=== PATIENT | female | born 1990 | race African-American/Black ===

== ENCOUNTER 2017-03-02 16:32 | Emergency (ER) | payer OTHER ==
--- NOTE | 2017-03-02 16:57 | PHYS DOC ---
General Chief Complaint: ANKLE PROBLEM Stated Complaint: LEFT LEG PAIN Time Seen by MD: 16:36 Source: patient Exam Limitations: no limitations Problems: History of Present Illness Initial Comments Patient is a 26-year-old female who comes in the ED complaining of left lower leg pain. Patient states that for the past few days she's had left lower leg pain which started at her ankle and is now radiating proximally up the lateral aspect of her calf. She does take control she is not a smoker, she did have a recent anterior left tibial contusion with significant left lower extremity swelling and she states that she spent several weeks convalescing on the sofa watching television. She also relays that she's been unemployed for the past year and has just this week started a new job which requires her to be on her feet a great deal. She's had ankle sprains in the past but denies recent trauma , and denies other weakness numbness tingling or radiating symptoms. She says she has muscle relaxants and pain medications at home for a previous back injury but has not taken them, she has come for evaluation to determine if she has a blood clot. No headache chest pain or difficulty breathing focal neurologic symptoms vision changes. Pain is described as sharp and stabbing the moderate to severe with movement and nearly absent at rest. Onset: other (past days she has recently history of left lower leg contusion with swelling she was off her feet for about a month watching TV she had worked in a year she's been very sedentary) Pain/Injury Location: left leg, left ankle Method of Injury: unknown Modifying Factors: worse with jarring, worse with movement, improves with rest Past Medical History Medical History: other (anxiety) Surgical History: noncontributory (normal) Social History Smoker: non-smoker Alcohol: none Drugs: none Review of Systems Constitutional: denies chills, denies fever (disposition d-dimer), denies malaise Respiratory: denies cough, denies shortness of breath, denies wheezing Cardiovascular: denies chest pain, denies palpitations, denies syncope Gastrointestinal: denies abdominal pain, denies nausea, denies vomiting Musculoskeletal: see HPI Skin: denies lesions, denies lumps, denies rash Psychiatric/Neurological: denies headache, denies numbness, denies paresthesia , denies weakness Physical Exam General Appearance: no apparent distress (patient's CBC and basic), obese HEENT: normal ENT inspection Neck: full range of motion, supple Cardiovascular/Respiratory: normal peripheral pulses, no respiratory distress Back: no CVA tenderness, no vertebral tenderness Legs: left leg other (there is 2+ pitting left lower extremity edema no erythema or tenderness no palpable subcutaneous masses or nodules, no deformity. ) Neurologic/Tendon: normal sensation, normal motor functions, normal tendon functions, responds to pain, no evidence tendon injury Psychiatric: alert, oriented x 3 Skin: normal color, warm/dry Orders, Labs, Meds PATIENT: PARADISE FREY ACCOUNT: [id number] : 1990 LOCATION: ER AGE: 26 SEX: F EXAM STATUS: REG ER ORD. PHYSICIAN: BEATRIZ VIZCAINO DO REASON: left leg pain/swelling PROCEDURE: VENOUS LOWER EXTREMITY LEFT Left lower extremity venous duplex Doppler ultrasound HISTORY: Left leg pain and swelling TECHNIQUE: Grayscale and duplex Doppler sonography were utilized. FINDINGS: No evidence of deep venous thrombosis by subramanian scale sonography with compressibility, respiratory variability, augmentation of blood flow and patent color Doppler flow of the left common femoral vein, greater saphenous vein in the proximal thigh, profunda femoral vein, superficial femoral vein and popliteal vein. Patent color Doppler blood flow with augmentation of blood flow of the left posterior tibial and peroneal veins within the calf. IMPRESSION: Negative left leg for deep venous thrombosis. Electronically signed by: Nicholas Resendiz MD (03/02/2017 5:42 PM) [facility] DICTATED AND SIGNED BY: NICHOLAS RESENDIZ MD DATE: 03/02/17 174 CC: WADE SOUZA BRAD K DO ~ Labs reassuring Departure Time of Disposition: 17:48 Disposition: 01 HOME, SELF-CARE Diagnosis: left lower leg strain Condition: GOOD Patient Instructions: Muscle Strain, [id number] Additional Instructions: Activity as tolerated. Heating pad to affected area 20 minutes 4-6 times daily followed by gentle stretching. [id number] Tylenol and/or ibuprofen as needed for discomfort. Follow-up with your doctor next week for recheck if symptoms persist. Return to the ED with new or changing symptoms. BEATRIZ VIZCAINO DO Mar 02, 2017 16:57
[2017-03-02 17:25] LABS: CALCIUM 9.6 mg/dL (8.5-10.1); CREATININE 1.4 mg/dL (0.6-1.0); GFR 55.4
[2017-03-02 17:26] LABS: BASO # 0.1 x10^3/uL (0.0-0.2); BASO % 1 % (0-3); EOS # 0.3 x10^3/uL (0.0-0.7); EOS % 4 % (0-3); HEMATOCRIT 39.6 % (36.0-47.0); HEMOGLOBIN 13.4 g/dL (12.0-15.5); LYMPH # 2.1 x10^3/uL (1.0-4.8); LYMPH % 29 % (24-48); MEAN CORPUSCULAR HEMOGLOBIN 27 pg (25-35); MEAN CORPUSCULAR HGB CONC 34 g/dL (31-37); MEAN CORPUSCULAR VOLUME 80 fL (79-100); MONO # 0.4 x10^3/uL (0.0-1.1); MONO % 6 % (0-9); NEUT # 4.4 x10^3uL (1.8-7.7); NEUT % 61 % (31-73); PLATELET COUNT 260 x10^3/uL (140-400); RED BLOOD COUNT 4.93 x10^6/uL (3.50-5.40); RED CELL DISTRIBUTION WIDTH 13.9 % (11.5-14.5); WHITE BLOOD COUNT 7.2 x10^3/uL (4.0-11.0)
--- NOTE | 2017-03-02 17:45 | RAD ---
Left lower extremity venous duplex Doppler ultrasound HISTORY: Left leg pain and swelling TECHNIQUE: Grayscale and duplex Doppler sonography were utilized. FINDINGS: No evidence of deep venous thrombosis by subramanian scale sonography with compressibility, respiratory variability, augmentation of blood flow and patent color Doppler flow of the left common femoral vein, greater saphenous vein in the proximal thigh, profunda femoral vein, superficial femoral vein and popliteal vein. Patent color Doppler blood flow with augmentation of blood flow of the left posterior tibial and peroneal veins within the calf. IMPRESSION: Negative left leg for deep venous thrombosis. Electronically signed by: Stanley Resendiz MD (03/02/2017 5:42 PM) [facility]
[2017-03-02 17:55] VITALS: BP 135/78
== END 2017-03-02 17:58 | disposition home or self-care (01) ==
LOC: ER 16:32
DX: S86.912A Strain of unspecified muscle(s) and tendon(s) at lower leg level, left leg, initial encounter (principal); X58.XXXA Exposure to other specified factors, initial encounter; Y93.89 Activity, other specified; Y99.8 Other external cause status; Y92.89 Other specified places as the place of occurrence of the external cause
CPT/HCPCS: 36415; 80048; 85027; 85379; 93971; 99285-25

== ENCOUNTER 2017-05-30 19:29 | Emergency (ER) | payer OTHER ==
[2017-05-30 19:43] VITALS: BP 126/51
[2017-05-30] MEDS ORDERED: ONDANSETRON PF 4 MG/2 ML VIAL. IV ONE (20:15)
[2017-05-30 20:29] LABS: BASO # 0.1 x10^3/uL (0.0-0.2); BASO % 1 % (0-3); EOS # 0.3 x10^3/uL (0.0-0.7); EOS % 3 % (0-3); HEMATOCRIT 39.1 % (36.0-47.0); HEMOGLOBIN 13.3 g/dL (12.0-15.5); LYMPH % 21 % (24-48); MEAN CORPUSCULAR HEMOGLOBIN 27 pg (25-35); MEAN CORPUSCULAR HGB CONC 34 g/dL (31-37); MEAN CORPUSCULAR VOLUME 79 fL (79-100); MONO # 0.6 x10^3/uL (0.0-1.1); MONO % 6 % (0-9); NEUT # 6.7 x10^3uL (1.8-7.7); NEUT % 69 % (31-73); PLATELET COUNT 210 x10^3/uL (140-400); RED BLOOD COUNT 4.94 x10^6/uL (3.50-5.40); RED CELL DISTRIBUTION WIDTH 14.3 % (11.5-14.5); WHITE BLOOD COUNT 9.6 x10^3/uL (4.0-11.0)
[2017-05-30 20:39] LABS: ALBUMIN 3.6 g/dL (3.4-5.0); ALBUMIN/GLOBULIN RATIO 0.9 (1.0-1.7); CALCIUM 10.4 mg/dL (8.5-10.1); GFR 81.1; TOTAL BILIRUBIN 0.5 mg/dL (0.2-1.0); TOTAL PROTEIN 7.5 g/dL (6.4-8.2)
--- NOTE | 2017-05-30 21:28 | RAD ---
Limited abdomen ultrasound study of the right upper quadrant HISTORY: 2 episodes of severe epigastric pain with nausea today. FINDINGS: The pancreas is partially obscured due to overlying bowel gas. What is visualized is homogeneous without focal enlargement. The liver is homogeneous and measures 17.7 cm in length. The length of the right kidney is 10.1 cm. No hydronephrosis or renal mass or perinephric fluid collection is seen on this side. Multiple gallstones are seen within the gallbladder. No gallbladder wall thickening or pericholecystic free fluid is evident. The extra hepatic bile duct measures 4.6 mm in caliber which is normal. IMPRESSION: Cholelithiasis. Electronically signed by: Shaquille Jerome MD (05/30/2017 9:24 PM) [facility]
[2017-05-30] MEDS ORDERED: ONDA8TAB12 PO (22:18)
[2017-05-30] MEDS ORDERED: HYDR-971 PO (22:18)
--- NOTE | 2017-05-30 22:18 | PHYS DOC ---
Past History Past Medical History: Anxiety Past Surgical History: No Surgical History Alcohol Use: None Drug Use: None Adult General Chief Complaint Chief Complaint: ABDOMINAL PAIN HPI HPI Patient is a 27-year-old female who presents to the ED with the complaint of abdominal pain. She first had this pain 2 days ago, Saturday. It awoke her at 340 in the morning. She saw her doctor on Saturday. The pain was gone but she was still nauseated. They thought it was probably a stomach bug. The patient was fine all day today. About 6:30 the pain began. It lasted about 30 or 45 minutes. It feels like a twisting and a pressure. She sort of feels like she needs to have a bowel movement but then she doesn't. She did have a normal bowel movement today. She has nausea with the pain. This evening, it happened after she ate one [place] [employer] moeller. Patient does take daily Prilosec for acid reflux. She doesn't feel like she's had any acid reflux. She's been taking it daily as prescribed. Patient works at a daycare. She is in good general health. Review of Systems Review of Systems Constitutional: Denies fever or chills [] HENT: Denies nasal congestion or sore throat [] Respiratory: Denies cough or shortness of breath [] Cardiovascular: Denies chest pain GI: As in history of present illness : Denies UTI symptoms Musculoskeletal: Denies back pain or joint pain [] Integument: Denies rash or skin lesions [] Neurologic: Denies headache, focal weakness or sensory changes [] Current Medications Current Medications Current Medications Medications (Trade) Dose Ordered Sig/[facility] Start Time Stop Time Status Last Admin Dose Admin Ondansetron HCl (Zofran) 4 mg 1X ONCE 05/30/17 20:15 05/30/17 20:16 DC 05/30/17 20:15 4 MG Allergies Allergies Allergies Coded Allergies Type Severity Reaction Last Updated Verified No Known Drug Allergies 05/30/17 No Physical Exam Physical Exam Constitutional: Well developed, well nourished, no acute distress, non-toxic appearance. Alert, mentating normally, warm and dry. HENT: Normocephalic, atraumatic, bilateral external ears normal, nose normal. [ ] Eyes: conjunctiva normal, no discharge. [] Neck: Normal range of motion, no stridor. [] Cardiovascular:Heart rate regular rhythm, no murmur [] Lungs & Thorax: Bilateral breath sounds clear to auscultation [] Abdomen: Bowel sounds normal, soft, nondistended, no masses, no pulsatile masses. Tenderness to palpation in the epigastrium and right upper quadrant. Hightower's +/-, gallbladder, liver not palpable Skin: Warm, dry, no erythema, no rash. [] Extremities: No tenderness, no cyanosis, no clubbing, ROM intact, no edema. [] Neurologic: Alert and oriented X 3, normal motor function, no focal deficits noted. [] Current Patient Data Vital Signs Vital Signs Date Time Temp Pulse Resp B/P (MAP) Pulse Ox O2 Delivery O2 Flow Rate FiO2 05/30/17 19:43 98.3 81 18 100 Room Air Lab Results Laboratory Tests Test 05/30/17 20:10 05/30/17 20:26 White Blood Count 9.6 x10^3/uL (4.0-11.0) Red Blood Count 4.94 x10^6/uL (3.50-5.40) Hemoglobin 13.3 g/dL (12.0-15.5) Hematocrit 39.1 % (36.0-47.0) Mean Corpuscular Volume 79 fL (79-100) Mean Corpuscular Hemoglobin 27 pg (25-35) Mean Corpuscular Hemoglobin Concent 34 g/dL (31-37) Red Cell Distribution Width 14.3 % (11.5-14.5) Platelet Count 210 x10^3/uL (140-400) Neutrophils (%) (Auto) 69 % (31-73) Lymphocytes (%) (Auto) 21 % (24-48) L Monocytes (%) (Auto) 6 % (0-9) Eosinophils (%) (Auto) 3 % (0-3) Basophils (%) (Auto) 1 % (0-3) Neutrophils # (Auto) 6.7 x10^3uL (1.8-7.7) Lymphocytes # (Auto) 2.0 x10^3/uL (1.0-4.8) Monocytes # (Auto) 0.6 x10^3/uL (0.0-1.1) Eosinophils # (Auto) 0.3 x10^3/uL (0.0-0.7) Basophils # (Auto) 0.1 x10^3/uL (0.0-0.2) Sodium Level 137 mmol/L (136-145) Potassium Level 4.0 mmol/L (3.5-5.1) Chloride Level 104 mmol/L (98-107) Carbon Dioxide Level 27 mmol/L (21-32) Anion Gap 6 (6-14) Blood Urea Nitrogen 12 mg/dL (7-20) Creatinine 1.0 mg/dL (0.6-1.0) Estimated GFR (Cockcroft-Gault) 81.1 BUN/Creatinine Ratio 12 (6-20) Glucose Level 104 mg/dL (70-99) H Calcium Level 10.4 mg/dL (8.5-10.1) H Total Bilirubin 0.5 mg/dL (0.2-1.0) Aspartate Amino Transferase (AST) 62 U/L (15-37) H Alanine Aminotransferase (ALT) 66 U/L (14-59) H Alkaline Phosphatase 132 U/L (46-116) H Total Protein 7.5 g/dL (6.4-8.2) Albumin 3.6 g/dL (3.4-5.0) Albumin/Globulin Ratio 0.9 (1.0-1.7) L Lipase 215 U/L (73-393) POC Urine HCG, Qualitative hcg negative (Negative) EKG EKG [] Radiology/Procedures Radiology/Procedures Right upper quadrant ultrasound read by the radiologist. Multiple gallstones but no evidence of cholecystitis or duct abnormality.[] Course & Med Decision Making Course & Med Decision Making Pertinent Labs and Imaging studies reviewed. (See chart for details) 27-year-old female presents with an episode of acute pain in the epigastrium that has nearly resolved on arrival to ED, this is her second episode in 3 days. The patient states the pain, when it comes, it is severe and she is very worried about what it is. Labs without significant acute findings but the patient's gallbladder ultrasound is positive for gallstones. Discussed the diagnosis of gallstones/ biliary colic with the patient and her . See instructions for plan. [] Dragon Disclaimer Dragon Disclaimer This chart was dictated in whole or in part using Voice Recognition software in a busy, high-work load, and often noisy Emergency Department environment. It may contain unintended and wholly unrecognized errors or omissions. Departure Departure: Impression: Primary Impression: Cholelithiasis Additional Impression: Biliary colic Disposition: 01 HOME, SELF-CARE Condition: IMPROVED Referrals: WADE SOUZA (PCP) Patient Instructions: Cholelithiasis, [id number] Additional Instructions: Call your primary care doctor's office tomorrow to let them know your diagnosis and asked for them to help arranging surgical consultation. As we discussed, avoid any fats whatsoever, including good fats, because that is what causes your gallbladder to contract. If you do have pain that won't go away within about an hour, if you have jaundice, or fever 100.4 higher, return to emergency. Scripts Hydrocodone Bit/Acetaminophen (NORCO 5-325 TABLET) 1 Each Tablet 1 TAB PO PRN Q6HRS Y for PAIN, #10 TAB 0 Refills Prov: KORY ODONNELL MD 05/30/17 Ondansetron (ZOFRAN ODT) 8 Mg Tab.rapdis 1 TAB PO Q8HRS for NAUSEA, #20 TAB Prov: KORY ODONNELL MD 05/30/17 Problem Qualifiers KORY ODONNELL MD May 30, 2017 22:18
== END 2017-05-30 22:27 | disposition home or self-care (01) ==
LOC: ER 19:32
DX: K80.70 Calculus of gallbladder and bile duct without cholecystitis without obstruction (principal); F41.9 Anxiety disorder, unspecified
CPT/HCPCS: 36415; 76705; 80053; 81025; 83690; 85025; 96374; 99285; J2405

== ENCOUNTER 2017-06-26 11:10 | Emergency (ER) | payer OTHER ==
[~2017-06-26 11:10] MED LIST: HYDR-971 PO; ONDA8TAB12 PO
--- NOTE | 2017-06-26 11:13 | PHYS DOC ---
Past History Past Medical History: Anxiety Past Surgical History: No Surgical History Alcohol Use: None Drug Use: None Adult General Chief Complaint Chief Complaint: abdominal pain [facility] HPI Patient is a 27 year old female who presents with abdominal pain. She had her gallbladder removed May 15 secondary to cholelithiasis. She states she's been doing fine since then however this morning she started having epigastric pain as a twisting sensation is located in her epigastric area. She denies any nausea or vomiting. She states the exact same pain she had several weeks ago and let her to have her gallbladder removed. She is not followed up with her surgeon as of yet. She states she's been having bowel movements are slightly different than her normal but she thinks this is likely the adjustment from her gallbladder surgery. She denies any fevers chills and stated before 940 this morning she was feeling fine. She has a past medical history of migraines, insomnia, depression. Her only other surgeries are dental surgeries. She denies . She denies any vaginal bleeding or discharge. She states nothing makes the pain better or worse. Review of Systems Review of Systems Constitutional: Denies fever or chills [] Eyes: Denies change in visual acuity, redness, or eye pain [] HENT: Denies nasal congestion or sore throat [] Respiratory: Denies cough or shortness of breath [] Cardiovascular: No additional information not addressed in HPI [] GI: Positive for abdominal pain,,Denies nausea, vomiting, bloody stools or diarrhea [] : Denies dysuria or hematuria [] Musculoskeletal: Denies back pain or joint pain [] Integument: Denies rash or skin lesions [] Neurologic: Denies headache, focal weakness or sensory changes [] Endocrine: Denies polyuria or polydipsia [] Allergies Allergies Allergies Coded Allergies Type Severity Reaction Last Updated Verified No Known Drug Allergies 05/30/17 No Physical Exam Physical Exam Constitutional: Well developed, well nourished, no acute distress, non-toxic appearance. [] HENT: Normocephalic, atraumatic, bilateral external ears normal, oropharynx moist, no oral exudates, nose normal. [] Eyes: PERRLA, EOMI, conjunctiva normal, no discharge. [] Neck: Normal range of motion, no tenderness, supple, no stridor. [] Cardiovascular:Heart rate regular rhythm, no murmur [] Lungs & Thorax: Bilateral breath sounds clear to auscultation [] Abdomen: Bowel sounds normal, soft, no tenderness, no masses, no pulsatile masses. [] Skin: Warm, dry, no erythema, no rash. [] Back: No tenderness, no CVA tenderness. [] Extremities: No tenderness, no cyanosis, no clubbing, ROM intact, no edema. [] Neurologic: Alert and oriented X 3, normal motor function, normal sensory function, no focal deficits noted. [] Psychologic: Affect normal, judgement normal, mood normal. [] EKG EKG [] Radiology/Procedures Radiology/Procedures [address] [address] IMAGING REPORT Signed PATIENT: PARADISE FREY ACCOUNT: [id number] : 1990 LOCATION: ER AGE: 27 SEX: F EXAM STATUS: REG ER ORD. PHYSICIAN: BERENICE ORELLANA MD REASON: abd pain PROCEDURE: CT ABD PELV W/ IV CONTRST ONLY CT of the abdomen and pelvis with contrast, 06/26/2017: History: Abdominal pain Multidetector CT imaging was performed following an IV bolus injection of iodinated contrast material. No oral contrast material was administered for this exam. No hepatic abnormality is identified. There is a tiny amount of fluid in the gallbladder fossa in this patient who has recently undergone a cholecystectomy. No large or encapsulated fluid collection is seen to suggest abscess or biloma. No bile duct dilatation is evident. The pancreas is unremarkable. The spleen is within normal limits in size. No renal abnormality is detected. The aorta is unremarkable. There are several small mesenteric lymph nodes seen without evidence of pathologic enlargement. No pelvic adenopathy is detected. The uterus is unremarkable. There is a trace amount of free fluid in the deep pelvis. The bowel loops are not dilated. The appendix is not visualized. No dilated appendix or pericecal inflammatory process is seen. No free air is evident in the abdomen or pelvis. There is mild degenerative changes at the L5-S1 disc level. IMPRESSION: 1. Minimal fluid in the gallbladder fossa compatible with the history of a recent cholecystectomy. 2. Small amount of free fluid in the pelvis. This amount of fluid can be on a physiologic basis. 3. The abdomen and pelvis are otherwise unremarkable. PQRS Compliance Statement: One or more of the following individualized dose reduction techniques were utilized for this examination: 1. Automated exposure control 2. Adjustment of the mA and/or kV according to patient size 3. Use of iterative reconstruction technique DICTATED AND SIGNED BY: PAT ANDINO MD DATE: 06/26/17 1221 CC: WADE SOUZA; BERENICE ORELLANA MD ~ [place] [address] IMAGING REPORT Signed PATIENT: PARADISE FREY ACCOUNT: [id number] : 1990 LOCATION: ER AGE: 27 SEX: F EXAM STATUS: REG ER ORD. PHYSICIAN: BERENICE ORELLANA MD REASON: ruq pain PROCEDURE: ABDOMEN LTD Right upper quadrant abdominal ultrasound, 06/26/2017: History: Pain The gallbladder is surgically absent. The common hepatic duct measures 4 mm. There is no evidence of a hepatic mass or intrahepatic bile duct dilatation. The pancreas was obscured by overlying bowel. The visualized portions of the right kidney are unremarkable. No free fluid is identified in the abdomen. IMPRESSION: 1. Status post cholecystectomy. 2. No acute abnormality is detected. DICTATED AND SIGNED BY: PAT ANDINO MD DATE: 06/26/17 1231 CC: WADE SOUZA; BERENICE ORELLANA MD ~ Impressions: Abdominal pain Course & Med Decision Making Course & Med Decision Making Pertinent Labs and Imaging studies reviewed. (See chart for details) Her pain is subsiding with a GI cocktail and morphine. CT scan and ultrasound of her abdomen did not show any acute abnormalities. Her labs also within normal limits. She's to follow-up with GI as an outpatient and her surgeon. Return precautions given. Her and her is agreeable Plan B discharged in stable condition this time. Dragon Disclaimer Dragon Disclaimer This chart was dictated in whole or in part using Voice Recognition software in a busy, high-work load, and often noisy Emergency Department environment. It may contain unintended and wholly unrecognized errors or omissions. Departure Departure: Impression: Primary Impression: Abdominal pain Disposition: HOME, SELF-CARE Condition: STABLE Referrals: WADE SOUZA (PCP) SHANELLE SAVAGE MD Patient Instructions: Abdominal Pain Additional Instructions: You were seen today for your epigastric abdominal pain. The CAT scan and ultrasound of your abdomen did not show any acute abnormalities. Your pain has resolved. Your labs are also within normal limits. You'll need to follow-up with Dr. Roberts within the next few days. Please call his office and schedule follow-up appointment. You can take Maalox or Tums to see if this will help your abdominal pain, if it flares up again. You'll need to follow-up with GI doctor. Please call their office schedule follow-up appointment. If your pain gets worse you have uncontrolled nausea vomiting, or other concerns please return back to emergency department. Problem Qualifiers Primary Impression: Abdominal pain Abdominal location: epigastric Qualified Codes: R10.13 - Epigastric pain BERENICE ORELLANA MD Jun 26, 2017 11:13
[2017-06-26] MEDS ORDERED: IV NORMAL SALINE 1,000ML 1,000 ML IV SCH (11:17)
[2017-06-26] MEDS ORDERED: ONDANSETRON PF 4 MG/2 ML VIAL. IV ONE (11:30)
[2017-06-26] MEDS ORDERED: MORPHINE SULFATE 2 MG/ML DISP.SYRIN. IV/SQ PRN (11:30)
[2017-06-26 11:35] LABS: BASO # 0.1 x10^3/uL (0.0-0.2); BASO % 1 % (0-3); EOS # 0.4 x10^3/uL (0.0-0.7); EOS % 5 % (0-3); HEMATOCRIT 41.3 % (36.0-47.0); LYMPH # 2.4 x10^3/uL (1.0-4.8); LYMPH % 29 % (24-48); MEAN CORPUSCULAR HEMOGLOBIN 27 pg (25-35); MEAN CORPUSCULAR HGB CONC 34 g/dL (31-37); MEAN CORPUSCULAR VOLUME 80 fL (79-100); MONO # 0.5 x10^3/uL (0.0-1.1); MONO % 6 % (0-9); NEUT # 4.9 x10^3uL (1.8-7.7); NEUT % 60 % (31-73); PLATELET COUNT 275 x10^3/uL (140-400); RED BLOOD COUNT 5.19 x10^6/uL (3.50-5.40); RED CELL DISTRIBUTION WIDTH 14.4 % (11.5-14.5); WHITE BLOOD COUNT 8.3 x10^3/uL (4.0-11.0)
[2017-06-26 11:47] LABS: ALBUMIN 3.8 g/dL (3.4-5.0); CALCIUM 10.6 mg/dL (8.5-10.1); CREATININE 1.1 mg/dL (0.6-1.0); DIRECT BILIRUBIN 0.1 mg/dL (0.0-0.2); GFR 72.6; POTASSIUM 4.1 mmol/L (3.5-5.1); TOTAL BILIRUBIN 0.3 mg/dL (0.2-1.0); TOTAL PROTEIN 7.9 g/dL (6.4-8.2)
[2017-06-26] MEDS ORDERED: LIDO:MAALOX 1:1 20 ML SINGLE DOSE ONE (11:47)
[2017-06-26] MEDS ORDERED: IOHEXOL 300 MG/ML 75 ML VIAL. ONE (11:55)
[2017-06-26] MEDS ORDERED: LIDO:MAALOX 1:1 20 ML SINGLE DOSE PO ONE (12:00)
[2017-06-26] MEDS ORDERED: IOHEXOL 300 MG/ML 75 ML VIAL. IV ONE (12:00)
--- NOTE | 2017-06-26 12:33 | RAD ---
CT of the abdomen and pelvis with contrast, 06/26/2017: History: Abdominal pain Multidetector CT imaging was performed following an IV bolus injection of iodinated contrast material. No oral contrast material was administered for this exam. No hepatic abnormality is identified. There is a tiny amount of fluid in the gallbladder fossa in this patient who has recently undergone a cholecystectomy. No large or encapsulated fluid collection is seen to suggest abscess or biloma. No bile duct dilatation is evident. The pancreas is unremarkable. The spleen is within normal limits in size. No renal abnormality is detected. The aorta is unremarkable. There are several small mesenteric lymph nodes seen without evidence of pathologic enlargement. No pelvic adenopathy is detected. The uterus is unremarkable. There is a trace amount of free fluid in the deep pelvis. The bowel loops are not dilated. The appendix is not visualized. No dilated appendix or pericecal inflammatory process is seen. No free air is evident in the abdomen or pelvis. There is mild degenerative changes at the L5-S1 disc level. IMPRESSION: 1. Minimal fluid in the gallbladder fossa compatible with the history of a recent cholecystectomy. 2. Small amount of free fluid in the pelvis. This amount of fluid can be on a physiologic basis. 3. The abdomen and pelvis are otherwise unremarkable. PQRS Compliance Statement: One or more of the following individualized dose reduction techniques were utilized for this examination: 1. Automated exposure control 2. Adjustment of the mA and/or kV according to patient size 3. Use of iterative reconstruction technique
--- NOTE | 2017-06-26 12:47 | RAD ---
Right upper quadrant abdominal ultrasound, 06/26/2017: History: Pain The gallbladder is surgically absent. The common hepatic duct measures 4 mm. There is no evidence of a hepatic mass or intrahepatic bile duct dilatation. The pancreas was obscured by overlying bowel. The visualized portions of the right kidney are unremarkable. No free fluid is identified in the abdomen. IMPRESSION: 1. Status post cholecystectomy. 2. No acute abnormality is detected.
[2017-06-26 12:58] LABS: BACTERIA,URINE 0 /HPF (0-FEW); BILIRUBIN,URINE NEG (NEG); CLARITY,URINE CLEAR; COLOR,URINE YELLOW; GLUCOSE,URINE NEG (NEG); NITRITE,URINE NEG (NEG); RBC,URINE 0 /HPF (0-2); SQUAMOUS EPITHELIAL CELL,UR FEW /LPF; UROBILINOGEN,URINE 0.2 mg/dL (0.2 mg/dL); WBC,URINE 0 /HPF (0-4)
[2017-06-26 13:05] LABS: U PREG PATIENT NEGATIVE (NEG)
[2017-06-26 13:15] VITALS: BP 122/80
== END 2017-06-26 13:17 | disposition home or self-care (01) ==
LOC: ER 11:10
DX: R10.13 Epigastric pain (principal); Z90.49 Acquired absence of other specified parts of digestive tract
CPT/HCPCS: 36415; 74177; 76705; 80048; 80076; 81001; 81025; 83690; 85025; 85610; 85730; 96361; 96374; 96375; 99285; J2270; J2405; J7030

== ENCOUNTER 2017-09-06 10:59 | Emergency (ER) | payer OTHER ==
[~2017-09-06] VITALS: Ht 170.2 cm; Wt 95.3 kg
--- NOTE | 2017-09-06 11:21 | PHYS DOC ---
Past History Past Medical History: Anxiety Past Surgical History: Cholecystectomy Alcohol Use: None Drug Use: None Adult General Chief Complaint Chief Complaint: MULTIPLE COMPLAINTS HPI HPI Patient is a 24 year old F who presents with more frequent migraine and abdominal pain over the past month. During this time she states that she had her Gallbladder was removed. She continues to have pain in the lower abdomen bilaterally and migraine. She is currently on her period and feels that her Migraines are worse around her period. She has had a recent EGD that was unremarkable. She states that her hydrocodone is not helping her pain. She has no other associated symptoms at this time. She has no other exacerbating or relieving factors. Review of Systems Review of Systems Constitutional: Denies fever or chills [] Eyes: Denies change in visual acuity, redness, or eye pain [] HENT: Denies nasal congestion or sore throat [] Respiratory: Denies cough or shortness of breath [] Cardiovascular: No additional information not addressed in HPI [] GI: Negative except history of present illness : Denies dysuria or hematuria [] Musculoskeletal: Denies back pain or joint pain [] Integument: Denies rash or skin lesions [] Neurologic: Denies focal weakness or sensory changes [] Endocrine: Denies polyuria or polydipsia [] All other systems were reviewed and found to be within normal limits, except as documented in this note. Family History Family History No pertinent medical history was reported Current Medications Current Medications Current medications were reviewed Allergies Allergies Allergies Coded Allergies Type Severity Reaction Last Updated Verified No Known Drug Allergies 05/30/17 No Physical Exam Physical Exam Constitutional: Well developed, well nourished, no acute distress, non-toxic appearance. [] HENT: Normocephalic, atraumatic Eyes: EOMI, conjunctiva normal, no discharge. [] Neck: Normal range of motion, no tenderness, supple, no stridor. [] Cardiovascular:Heart rate regular rhythm, Lungs & Thorax: Bilateral breath sounds clear to auscultation [] Abdomen: Bowel sounds normal, soft, no masses, no pulsatile masses. [] Minimal lower quadrant tenderness to palpation Skin: Warm, dry, no erythema, no rash. [] Back: No tenderness, no CVA tenderness. [] Extremities: No tenderness, no cyanosis, no clubbing, ROM intact, no edema. [] Neurologic: Alert and oriented X 3, normal motor function, normal sensory function, no focal deficits noted. [] Psychologic: Affect normal, judgement normal, mood normal. [] Current Patient Data Vital Signs Vital Signs Date Time Temp Pulse Resp B/P (MAP) Pulse Ox O2 Delivery O2 Flow Rate FiO2 09/06/17 12:38 70 18 131/74 (93) 100 Room Air 09/06/17 11:21 98.2 72 18 100 Room Air EKG EKG [] Radiology/Procedures Radiology/Procedures Laboratory Tests Test 09/06/17 11:22 09/06/17 11:46 Urine Collection Type Unknown Urine Color Yellow Urine Clarity Clear Urine pH 5.5 Urine Specific [place] 1.015 Urine Protein Neg (NEG-TRACE) Urine Glucose (UA) Neg mg/dL (NEG) Urine Ketones (Stick) Neg mg/dL (NEG) Urine Blood Trace (NEG) Urine Nitrite Neg (NEG) Urine Bilirubin Neg (NEG) Urine Urobilinogen Dipstick 0.2 mg/dL (0.2 mg/dL) Urine Leukocyte Esterase Neg (NEG) Urine RBC 0 /HPF (0-2) Urine WBC 0 /HPF (0-4) Urine Squamous Epithelial Cells Occ /LPF Urine Bacteria 0 /HPF (0-FEW) Bedside Urine HCG, Qualitative hcg negative (Negative) [] Course & Med Decision Making Course & Med Decision Making Pertinent Labs and Imaging studies reviewed. (See chart for details) Adeline did receive moderate improvement with treatment. She was given Toradol IM , Benadryl IM and Compazine IM. Further labs and imaging were declined Dragon Disclaimer Dragon Disclaimer This electronic medical record was generated, in whole or in part, using a voice recognition dictation system. Departure Departure: Impression: Primary Impression: Migraine Additional Impression: Abdominal pain Disposition: HOME, SELF-CARE Condition: STABLE Referrals: NON,STAFF (PCP) Patient Instructions: Abdominal Migraine, Recurrent Migraine Headache Additional Instructions: Adeline was seen in the emergency department for headache and abdominal pain. No emergency medical condition was found on history or physical exam. Her symptoms are most consistent with migraine and possibly endometriosis. She was given medication in the emergency room that improved her symptoms. She was advised consider neurology follow-up for consultation on migraine prevention medications. She was advised follow-up with her primary care doctor in the next 3-5 days for further management. Problem Qualifiers Primary Impression: Migraine Migraine type: menstrual Status migrainosus presence: without status migrainosus Intractability: not intractable Qualified Codes: G43.829 - Menstrual migraine, not intractable, without status migrainosus Additional Impression: Abdominal pain Abdominal location: lower abdomen, unspecified Qualified Codes: R10.30 - Lower abdominal pain, unspecified MARYAN MCDONALD MD Sep 06, 2017 11:21
[2017-09-06 12:14] LABS: BACTERIA,URINE 0 /HPF (0-FEW); BILIRUBIN,URINE NEG (NEG); CLARITY,URINE CLEAR; COLOR,URINE YELLOW; GLUCOSE,URINE NEG (NEG); NITRITE,URINE NEG (NEG); RBC,URINE 0 /HPF (0-2); SQUAMOUS EPITHELIAL CELL,UR OCC /LPF; UROBILINOGEN,URINE 0.2 mg/dL (0.2 mg/dL); WBC,URINE 0 /HPF (0-4)
[2017-09-06] MEDS ORDERED: diphenhydrAMINE 50 MG/ML VIAL IM ONE (12:30)
[2017-09-06] MEDS ORDERED: KETOROLAC 60 MG/2 ML VIAL. IM ONE (12:30)
[2017-09-06] MEDS ORDERED: PROCHLORPERAZINE 10 MG/2 ML VIAL. IM ONE (12:30)
[2017-09-06 13:39] VITALS: BP 134/76
== END 2017-09-06 13:41 | disposition home or self-care (01) ==
LOC: ER 10:59
DX: G43.829 Menstrual migraine, not intractable, without status migrainosus (principal); R10.30 Lower abdominal pain, unspecified; F41.9 Anxiety disorder, unspecified; Z90.49 Acquired absence of other specified parts of digestive tract
CPT/HCPCS: 81001; 81025; 96372; 99284; J0780; J1200; J1885

== ENCOUNTER 2019-03-21 15:02 | Emergency (ER) | payer OTHER ==
[~2019-03-21] VITALS: Ht 165.1 cm; Wt 99.8 kg
[~2019-03-21 15:02] MED LIST changes: +HYDR-3165 PO; -HYDR-971 PO
--- NOTE | 2019-03-21 15:53 | PHYS DOC ---
Past History Past Medical History: Anxiety Past Surgical History: Cholecystectomy Alcohol Use: None Drug Use: None Adult General Chief Complaint Chief Complaint: WOUND CHECK HPI HPI 28-year-old female presents with chest discomfort. Patient recently had parathyroid surgery. This was 4 days ago. Since that time, she saw like she has an upper chest heaviness. It is worse with deep breathing. Patient also noticed that she had some thin exudate leaking from her incision site and wanted to make sure it was not infected. She denies fever or chills at home. Patient denies diaphoresis. Denies cardiac history. Review of Systems Review of Systems Constitutional: Denies fever or chills [] Eyes: Denies change in visual acuity, redness, or eye pain [] HENT: Denies nasal congestion or sore throat. Tender upper chest [] Respiratory: Denies cough or shortness of breath [] Cardiovascular: No additional information not addressed in HPI [] GI: Denies abdominal pain, nausea, vomiting, bloody stools or diarrhea [] : Denies dysuria or hematuria [] Musculoskeletal: Denies back pain or joint pain [] Integument: Denies rash or skin lesions [] Neurologic: Denies headache, focal weakness or sensory changes [] Endocrine: Denies polyuria or polydipsia [] All other systems were reviewed and found to be within normal limits, except as documented in this note. Allergies Allergies Allergies Coded Allergies Type Severity Reaction Last Updated Verified No Known Drug Allergies 05/30/17 No Physical Exam Physical Exam Constitutional: Well developed, well nourished, no acute distress, non-toxic appearance. [] HENT: Normocephalic, atraumatic, bilateral external ears normal, oropharynx moist, no oral exudates, nose normal. [] Eyes: PERRLA, EOMI, conjunctiva normal, no discharge. [] Neck: Normal range of motion, no tenderness, supple, no stridor. Surgical incision clean and dry and intact. No exudate.[] Cardiovascular:Heart rate regular rhythm, no murmur [] Lungs & Thorax: Bilateral breath sounds clear to auscultation. Tenderness with palpation of the upper chest below her incision. [] Abdomen: Bowel sounds normal, soft, no tenderness, no masses, no pulsatile masses. [] Skin: Warm, dry, no erythema, no rash. [] Back: No tenderness, no CVA tenderness. [] Extremities: No tenderness, no cyanosis, no clubbing, ROM intact, no edema. [] Neurologic: Alert and oriented X 3, normal motor function, normal sensory function, no focal deficits noted. [] Psychologic: Affect normal, judgement normal, mood anxious. [] EKG EKG [] Radiology/Procedures Radiology/Procedures [] Impressions: Preliminary interpretation chest x-ray: No acute cardiopulmonary process is seen. Course & Med Decision Making Course & Med Decision Making Pertinent Labs and Imaging studies reviewed. (See chart for details) The patient's chest x-ray is unremarkable. I believe her discomfort is a combination of normal postsurgical soreness and her being very anxious. She was reassured by her results. She is stable for discharge at this time. [] Dragon Disclaimer Dragon Disclaimer This electronic medical record was generated, in whole or in part, using a voice recognition dictation system. Departure Departure: Impression: Primary Impression: Chest wall pain following surgery Disposition: 01 HOME, SELF-CARE Condition: STABLE Referrals: AROLDO ACE DO (PCP) Patient Instructions: Chest Wall Pain, [id number] LINH HIGGINBOTHAM DO Mar 21, 2019 15:53
[2019-03-21 16:48] VITALS: BP 120/76
--- NOTE | 2019-03-21 18:36 | RAD ---
PA and lateral chest. HISTORY: Recent parathyroid surgery PA and lateral views were taken of the chest. Lungs are clear. Heart is normal in size. There is no pleural effusion. IMPRESSION: 1. No acute chest disease. Electronically signed by: Stevie Alvarez MD (03/21/2019 6:33 PM) [facility]
== END 2019-03-21 16:49 | disposition home or self-care (01) ==
LOC: ER 15:02
DX: R07.89 Other chest pain (principal); E89.2 Postprocedural hypoparathyroidism; F41.9 Anxiety disorder, unspecified; Z90.49 Acquired absence of other specified parts of digestive tract
CPT/HCPCS: 71046; 99284